=== PATIENT | female | born 1965 | race Caucasian/White ===

== ENCOUNTER 2024-05-31 10:57 | Outpatient (OUT) | payer BC, SELFPAY ==
--- NOTE | 2024-05-31 | US_ITS ---
Patient Name: KIMBERLI DOLL MR#: [id number] : 1965 Exam Date: 05/31/2024 Ordering Doctor: DR CURTIS TOLBERT D.O. RADIOLOGY REPORT PROCEDURE: MM TOMOSYNTHESIS DIAGNOSTIC BI, 05/31/2024, 11:25 US BREAST RT LIMITED, 05/31/2024, 12:04 COMPARISON: MG MAMM SCREEN 3D RAY CAD, 07/27/2022. INDICATIONS: Mastodynia N64.4 Calculator Name NCI Breast Cancer Risk Assessment Tool 5 Year Breast Cancer Risk 1.10% Lifetime Breast Cancer Risk 6.60% Personal Breast Cancer No Personal Ovarian Cancer No Treatments None Family Cancers None LOCATION: [facility] BREAST COMPOSITION: The breasts are heterogeneously dense,which may obscure small masses. FINDINGS: DIAGNOSTIC CATEGORY 2--BENIGN FINDING. NO CHANGE FROM COMPARISON. Scattered benign-appearing nodules are present. Scattered benign-appearing calcifications are present. Scattered benign-appearing lymph nodes are present. RIGHT BREAST: New triangular-shaped nodule measuring 5.5 x 7.4 mm upper outer quadrant, anterior breast, 8 o'clock position. Ultrasound demonstrates at the 8 o'clock position a 6.2 x 4.5 x 5.0 mm cystic area with multiple internal septations but no color flow. This corresponds in size and and location and likely represents a complex cyst. No further evaluation is required LEFT BREAST: No significant suspicious finding. RECOMMENDATIONS: ROUTINE MAMMOGRAM AND CLINICAL EVALUATION IN 12 MONTHS. PLEASE NOTE: A NORMAL MAMMOGRAM DOES NOT EXCLUDE THE POSSIBILITY OF BREAST CANCER. A CLINICALLY SUSPICIOUS PALPABLE LUMP SHOULD BE BIOPSIED. Dictated by: Jb Mendoza MD on 05/31/2024 at 12:37 Approved by: Jb Mendoza MD on 05/31/2024 at 12:39
--- NOTE | 2024-05-31 11:23 | MM_ITS ---
Patient Name: KIMBERLI DOLL MR#: [id number] : 1965 Exam Date: 05/31/2024 Ordering Doctor: DR CURTIS TOLBERT D.O. RADIOLOGY REPORT PROCEDURE: MM TOMOSYNTHESIS DIAGNOSTIC BI, 05/31/2024, 11:25 US BREAST RT LIMITED, 05/31/2024, 12:04 COMPARISON: MG MAMM SCREEN 3D RAY CAD, 07/27/2022. INDICATIONS: Mastodynia N64.4 Calculator Name NCI Breast Cancer Risk Assessment Tool 5 Year Breast Cancer Risk 1.10% Lifetime Breast Cancer Risk 6.60% Personal Breast Cancer No Personal Ovarian Cancer No Treatments None Family Cancers None LOCATION: [facility] BREAST COMPOSITION: The breasts are heterogeneously dense,which may obscure small masses. FINDINGS: DIAGNOSTIC CATEGORY 2--BENIGN FINDING. NO CHANGE FROM COMPARISON. Scattered benign-appearing nodules are present. Scattered benign-appearing calcifications are present. Scattered benign-appearing lymph nodes are present. RIGHT BREAST: New triangular-shaped nodule measuring 5.5 x 7.4 mm upper outer quadrant, anterior breast, 8 o'clock position. Ultrasound demonstrates at the 8 o'clock position a 6.2 x 4.5 x 5.0 mm cystic area with multiple internal septations but no color flow. This corresponds in size and and location and likely represents a complex cyst. No further evaluation is required LEFT BREAST: No significant suspicious finding. RECOMMENDATIONS: ROUTINE MAMMOGRAM AND CLINICAL EVALUATION IN 12 MONTHS. PLEASE NOTE: A NORMAL MAMMOGRAM DOES NOT EXCLUDE THE POSSIBILITY OF BREAST CANCER. A CLINICALLY SUSPICIOUS PALPABLE LUMP SHOULD BE BIOPSIED. Dictated by: Jb Mendoza MD on 05/31/2024 at 12:37 Approved by: Jb Mendoza MD on 05/31/2024 at 12:39
== END 2024-05-31 10:58 | disposition home or self-care (01) ==
LOC: MAMMO 11:05
PROVIDERS: PCP Family Medicine; Visit Provider Family Medicine
DX: N64.4 Mastodynia (principal); N63.11 Unspecified lump in the right breast, upper outer quadrant
CPT/HCPCS: 76642; 77066; G0279